=== PATIENT | female | born 1990 ===

== ENCOUNTER 2021-05-31 06:55 | Inpatient (IN) ==
[2021-05-31] MEDS ORDERED: TRANEXAMIC ACID 1,000 MG/10 ML VIAL ONE (07:20)
[2021-05-31] MEDS ORDERED: OXYTOCIN/LR 20 UNIT/1,000 ML BAG IV ONE ×3 (07:20→08:06)
[2021-05-31] MEDS ORDERED: CARBOPROST TROMETHAMINE 250 MCG/ML AMP IM ONE (07:21)
[2021-05-31] MEDS ORDERED: METHYLERGONOVINE 0.2 MG/1 ML AMP ONE (07:21)
[2021-05-31] MEDS ORDERED: LIDOCAINE 1% 50 ML VIAL ONE (07:23)
[2021-05-31] MEDS ORDERED: LACTATED RINGERS 250 ML IV ONE (07:28)
[2021-05-31] MEDS ORDERED: ONDANSETRON 4 MG/2 ML VIAL IV PRN ×2 (07:28→08:06)
[2021-05-31] MEDS ORDERED: LACTATED RINGERS 500 ML IV PRN (07:28)
[2021-05-31] MEDS ORDERED: LIDOCAINE 1% 50 ML VIAL MISC INJ ONE (07:28)
[2021-05-31] MEDS ORDERED: miSOPROStoL 200 MCG TABLET VAG PRN (07:28)
[2021-05-31] MEDS ORDERED: CARBOPROST TROMETHAMINE 250 MCG/ML AMP IM PRN (07:28)
[2021-05-31] MEDS ORDERED: LACTATED RINGERS 1,000 ML IV SCH (07:30)
[2021-05-31 07:39] LABS: Cord Arterial Blood HCO3 22.7 MMOL/L
[2021-05-31 07:40] LABS: Cord Venous Blood HCO3 24.2 MMOL/L; Cord Venous Blood PCO2 42.6 MMHG; Cord Venous Blood PO2 23.4 MMHG
[2021-05-31 07:59] LABS: Basophils % 0.3 % (0.0-0.8); Eosinophils % 0.3 % (0.00-10.9); Hemoglobin 10.4 GM/DL (12.0-16.0); Immature Granulocytes % 0.7 %; Immature Granulocytes Absolute 0.08 #; Lymphocytes # 1.3 10*3/uL (1.4-4.0); Lymphocytes % 10.9 % (21.3-54.2); Mean Corpuscular HGB Conc 30.6 GM/DL (32-36); Mean Corpuscular Volume 84.4 FL (87-102); Mean Platelet Volume 10.3 FL (9.6-12.0); Monocytes % 8.4 % (1.7-12.7); Neutrophils % 79.4 % (38.7-73.9); Platelet Count 236 T/CUMM (130-400); Red Blood Count 4.03 MC/CUMM (3.8-5.5); Red Cell Distribution Width 15.3 % (9.3-17.3); White Blood Count 11.5 T/CUMM (4-12)
[2021-05-31] MEDS ORDERED: HYDROCORTISONE 2.5% RECTAL CREAM 30 GM TUBE TOP PRN (08:06)
[2021-05-31] MEDS ORDERED: BENZOCAINE 20%/MENTHOL 0.5% SPRAY 56 GM CAN TOP PRN (08:06)
[2021-05-31] MEDS ORDERED: ACETAMINOPHEN 325 MG TABLET PO PRN (08:06)
[2021-05-31] MEDS ORDERED: oxyCODONE/ACETAMINOPHEN 5-325 MG TABLET PO PRN ×2 (08:06)
[2021-05-31] MEDS ORDERED: DIPH/TET/ACEL PERT BOOSTER VACCINE 0.5 ML VIAL IM ONE (08:06)
[2021-05-31] MEDS ORDERED: WITCH HAZEL PADS 100/JAR TOP PRN (08:06)
[2021-05-31] MEDS ORDERED: MEASLES/MUMPS/RUBELLA VACCINE 0.5 ML VIAL SUBCUT ONE (08:06)
[2021-05-31] MEDS ORDERED: BISACODYL 10 MG SUPP RECTAL PRN (08:06)
[2021-05-31] MEDS ORDERED: LANOLIN 50% CREAM 0.3 OZ TUBE TOP PRN (08:06)
[2021-05-31] MEDS ORDERED: RHO(D) IMMUNE GLOBULIN 300 MCG SYRINGE IM ONE (08:06)
[2021-05-31] MEDS: DOCUSATE SODIUM 100 MG CAPSULE PO SCH ×2 (11:28→20:17)
[2021-05-31] MEDS: IBUPROFEN 800 MG TABLET PO PRN ×2 (14:25→23:00)
[2021-06-01 05:03] LABS: Basophils % 0.3 % (0.0-0.8); Eosinophils # 0.1 10*3/uL (0.0-0.87); Eosinophils % 0.7 % (0.00-10.9); Hematocrit 30.5 VOL% (35.7-47.0); Hemoglobin 9.2 GM/DL (12.0-16.0); Immature Granulocytes % 0.7 %; Immature Granulocytes Absolute 0.08 #; Lymphocytes # 2.2 10*3/uL (1.4-4.0); Lymphocytes % 20.1 % (21.3-54.2); Mean Corpuscular HGB Conc 30.2 GM/DL (32-36); Monocytes % 8.3 % (1.7-12.7); Neutrophils % 69.9 % (38.7-73.9); Platelet Count 228 T/CUMM (130-400); Red Blood Count 3.63 MC/CUMM (3.8-5.5); Red Cell Distribution Width 15.4 % (9.3-17.3); White Blood Count 11.1 T/CUMM (4-12)
[2021-06-01] MEDS: DOCUSATE SODIUM 100 MG CAPSULE PO SCH (08:11)
[2021-06-01 08:33] VITALS: BP 116/76
[2021-06-01] MEDS ORDERED: INFLUENZA VIRUS VACCINE 0.5 ML SYRINGE IM ONE (09:31)
[2021-06-02] MEDS ORDERED: INFLUENZA VIRUS VACCINE 0.5 ML SYRINGE IM ONE (07:39)
== END 2021-06-01 11:31 | disposition home or self-care (01) | DRG 807 ==
LOC: N.LD 06:55 → N.OB 11:09
PROVIDERS: ADMIT Obstetrics & Gynecology; ATTEND Obstetrics & Gynecology